=== PATIENT | female | born 1975 | race Asian ===

== ENCOUNTER 2024-03-14 20:45 | Inpatient (IN) | payer OTHER, SELFPAY ==
--- NOTE | ~2024-03-14 | CT_ITS ---
EXAMINATION: CT ABDOMEN AND PELVIS WITHOUT CONTRAST CLINICAL INFORMATION: Abdominal pain, bloating, diarrhea. COMPARISON: None available. TECHNIQUE: Multidetector volumetric imaging was performed from the superior aspect of the liver through the pubic symphysis. Sagittal and coronal reformatted images were obtained on the technologist's workstation. This CT examination was performed using dose optimization techniques as appropriate, variously including the following: *Automated exposure control *Adjustment of mA and/or kV according to patient size (this includes techniques or standardized protocols for targeted exams where dose is matched to indication/reason for exam; i.e. extremities or head) *Use of iterative reconstruction technique DLP: 227 mGy-cm FINDINGS: LUNG BASES: The visualized lung bases are unremarkable. LIVER, GALLBLADDER, AND BILIARY TREE: The liver is normal in size, shape, and attenuation. No focal hepatic lesion or biliary ductal dilatation is present. The gallbladder is nondistended and unremarkable. No radiopaque gallstone. No intra or extrahepatic biliary ductal dilatation. PANCREAS: Unremarkable. SPLEEN: Atrophic. ADRENAL GLANDS: Unremarkable. KIDNEYS AND URETERS: The kidneys are normal in size, shape, and attenuation. No hydronephrosis, hydroureter, or calculi seen. No perinephric stranding. BLADDER: Nondistended and unremarkable. GASTROINTESTINAL TRACT: There is swirling of the mesentery within the central pelvis with associated sigmoid colon bowel loops. There is prominent stool and just proximal to this area with severe dilatation of the proximal colon. The distal sigmoid and rectum demonstrates circumferential wall thickening with adjacent stranding and edema. Findings are concerning for sigmoid volvulus an associated bowel obstruction. The distal sigmoid and rectal wall thickening and edema is concerning for ischemia. No pneumatosis. Small amount of pelvic free fluid. No extraluminal air or evidence of perforation. PERITONEAL CAVITY: Pelvic free fluid. No organized fluid collection or abscess formation. No free air. ABDOMINAL WALL: No significant hernia is appreciated. LYMPH NODES: No significant lymphadenopathy, however, evaluation limited without IV contrast. VASCULAR: Unremarkable. PELVIC VISCERA: Grossly unremarkable uterus. Small amount of pelvic free fluid. OSSEOUS STRUCTURES: Unremarkable. CT/CT abdomen pelvis wo IV con IMPRESSION: 1. Swirling of the mesentery within the central pelvis with associated sigmoid colon bowel loops. Findings are concerning for sigmoid volvulus and associated bowel obstruction. The distal sigmoid and rectal wall thickening and edema is concerning for ischemia. No pneumatosis. No extraluminal air or evidence of perforation. 2. Small amount of pelvic free fluid. No organized fluid collection or abscess formation. This critical result was discussed with SÁNCHEZ Bernal at 10:40 PM on 03/13/2024 and it was ascertained that the content and urgency of the report was understood at the time of direct communication. Fleischner guidelines were followed.
[2024-03-14 21:18] VITALS: BP 115/54; PULSE 58; RESP 16; TEMP 36.4; O2SAT 99; BMI 16.0
[2024-03-14 21:35] LABS: MANUAL DIFF FLAG NO
[2024-03-14 21:37] LABS: Basophils Percent Auto 0.2 % (0-2); Eosinophils Absolute Auto 0.1 X10*3/uL (0.0-0.4); Eosinophils Percent Auto 0.9 % (0-4); Hematocrit 40.3 % (37.0-47.0); Hemoglobin 13.4 g/dl (12.0-16.0); Imm Gran Abs Auto 0.02 X10*3/uL (0.00-0.03); Imm Gran Pct Auto 0.3 % (0.0-0.4); Lymphocytes Absolute Auto 1.6 X10*3/uL (1.2-4.9); Lymphocytes Percent Auto 24.6 % (20-40); Mean Corpuscular HGB Conc 33.3 g/dl (31.0-35.0); Mean Corpuscular Volume 93.3 fL (80.0-98.0); Mean Platelet Volume 8.8 fL (9.4-12.3); Monocytes Absolute Auto 0.6 X10*3/uL (0.1-1.2); Monocytes Percent Auto 8.3 % (2-11); Neutrophils Absolute Auto 4.4 x10*3/uL (2.0-8.3); Neutrophils Percent Auto 65.7 % (45-73); Platelet Count 244 X10*3/uL (160-400); Red Blood Count 4.32 X10*6/uL (4.20-5.50); Red Cell Distribution Width 13.9 % (11.0-16.0); White Blood Count 6.6 X10*3/uL (4.8-10.8)
[2024-03-14 21:46] LABS: Appearance Urine Clear; Color Urine Dark Yellow; Glucose Urine UA Negative (Negative); Leukocyte Esterase Urine Negative (Negative); Nitrite Urine Negative (Negative); PH 5.5 (5.0-9.0); Specific Gravity - Urine 1.025 (1.005-1.025); Urine Blood Negative (Negative); Urine Ketones 15 mg/dL (Negative); Urine Protein Negative (Neg-Trace)
--- NOTE | 2024-03-14 21:47 | ED.ABDPAIN ---
HPI - Abdominal Pain General Chief Complaint: Abdominal Pain Stated Complaint: Pain in abdomen Time Seen by Provider: 03/14/24 21:46 Source: patient, RN notes reviewed and old records reviewed Mode of arrival: ambulatory Limitations: no limitations History of Present Illness ED Provider: ALYSSA BERNAL PA-C HPI narrative: 48 year old female with no significant past medical history presents to the ED today for evaluation of lower abdominal pain x24 hours. Reports pain has been constant however waxes and wanes in intensity. Admits to one episode of diarrhea/ mucousy stool this morning. Admits to associated nausea without vomiting. No [id number] pain medication at home prior to arrival in ED. Denies fever/chills, flank pain, constipation, dysuria, hematuria. Related Data Allergies Allergy/AdvReac Type Severity Reaction Status Date / Time No Known Allergies Allergy Verified 03/14/24 21:18 Review of Systems Review of Systems Constitutional: No fever, chills, fatigue, night sweats, weight changes ENT/Mouth: No ear pain, hearing loss, nasal congestion, sinus pain, rhinorrhea, sore throat Eyes: No eye pain, swelling, redness, vision changes, discharge Cardio: No chest pain, palpitations, CÁRDENAS, orthopnea, peripheral edema Pulm: No SOB, cough, sputum, wheezing, dyspnea, hemoptysis GI: No nausea, vomiting, hematemesis, abdominal pain, diarrhea, constipation, hematochezia, melena, +abdominal pain, +loose stool : No irregular bleeding, dysuria, frequency, urgency, hesitancy, hematuria, flank pain, urinary flow changes, urinary incontinence or retention MSK: No back pain, neck pain, joint pain, myalgias Skin: No lesions, rashes Neuro: No weakness, numbness, paresthesias, LOC, dizziness, headache Psych: No anxiety/panic, depression, SI/HI, AH/VH All other systems reviewed and are negative. [facility] Past Medical History Attestation statement: The following information was validated with the patient. Source: old records reviewed and nursing notes reviewed Social History Social History Smoked in Last 30 Days: No Use of substances other than those prescribed or required for medical reasons: No Advance Directives: No Advance Directives Information Provided: No Patient : No Physical Exam ED Vital Signs: Vital Signs - 24 hr 03/14/24 21:18 Temperature 97.6 F Pulse Rate 58 Respiratory Rate 16 Blood Pressure 115/54 L Pulse Oximetry 99 Oxygen Delivery Method Room Air BMI result Body Mass Index 16.0 vital signs stable Const Other: uncomfortable appearing General: cooperative Orientation/consciousness: patient oriented x3 Limitations: no limitations HENMT Head: Yes normal to inspection, Yes No palpable skull fracture present, Yes normocephalic and Yes atraumatic Eyes General: appearance normal, both eyes and all related structures Pupils: Equal, round and reactive pupils present Neck Neck: Yes normal visual inspection Resp Effort & Inspection: normal respiratory effort and able to speak in complete sentences Auscultation: clear to auscultation bilaterally Cardio Rate: regular rate Rhythm: regular rhythm GI Other: abdomen soft, distended, ttp of lower abdomen without rebound or guarding Neuro General: patient oriented x3 Cranial nerves: Yes Equal, round and reactive pupils present Course Course Course Narrative: 1051-- CBC without leukocytosis or left shift. No anemia. H&H stable. Chemistry without acute electrolyte abnormality requiring intervention. Normal renal function. Total bili slightly elevated to 1.3. Liver function WNL. Lipase WNL. UA without infection or blood. Urine negative. > regarding CT abdomen/pelvis, I received a call from radiologist noting concern for sigmoid volvulus with distended colon and ischemia of the distal colon. my attending physician dr. cory marie who also evaluated patient at bedside and spoke with dr. uriostegui who will be taking patient to OR stat for exploratory laparotomy > IVF, toradol, ekg, lactic, coags ordered > Zosyn ordered preoperatively. No concern for infection or sepsis. Medical Decision Making Medical Decision Making [facility] Narrative: 48 year old female with no significant past medical history presents to the ED today for evaluation of lower abdominal pain x24 hours. Vital signs stable. Afebrile. She is nontoxic appearing in no acute distress. Patient visibly uncomfortable on exam bed. Abdomen is distended but soft. TTP of lower abdomen without rebound or guarding. No CVAT b/l. Differential diagnosis includes gastroenteritis, gastritis, diverticulosis, diverticulitis, SBO, acute abdomen Plan for labs, UA, CT, and re-evaluation. Differential Diagnosis Differential Diagnoses: The differential diagnosis associated with the presentation includes as above. Admission/Observation Consideration of admission/observation: Escalation of care including admission/observation considered Patient will be admitted to surgery for exploratory laparotomy Consult Healthcare Provider Management of the patient was discussed with: Farrowing Manager (Dr. Wray (general surgery)) Lab Data MDM Lab Attestation statement: I reviewed the patient's lab results. as above. 03/14/24 21:30 03/14/24 21:30 Labs: Lab Results 03/14/24 03/14/24 Range/Units 21:30 22:49 WBC 6.6 (4.8-10.8) X10*3/uL RBC 4.32 (4.20-5.50) X10*6/uL Hgb 13.4 (12.0-16.0) g/dl Hct 40.3 (37.0-47.0) % MCV 93.3 (80.0-98.0) fL MCH 31.0 (27.0-33.0) pg MCHC 33.3 (31.0-35.0) g/dl RDW 13.9 (11.0-16.0) % Plt Count 244 (160-400) X10*3/uL MPV 8.8 L (9.4-12.3) fL Immature Gran % (Auto) 0.3 (0.0-0.4) % Neut % (Auto) 65.7 (45-73) % Lymph % (Auto) 24.6 (20-40) % [place] % (Auto) 8.3 (2-11) % Eos % (Auto) 0.9 (0-4) % Baso % (Auto) 0.2 (0-2) % Lymph # (Auto) 1.6 (1.2-4.9) X10*3/uL [place] # (Auto) 0.6 (0.1-1.2) X10*3/uL Eos # (Auto) 0.1 (0.0-0.4) X10*3/uL Baso # (Auto) 0.0 (0.0-0.2) X10*3/uL Abs Immat Gran (auto) 0.02 (0.00-0.03) X10*3/uL Absolute Neuts (auto) 4.4 (2.0-8.3) x10*3/uL Absolute Nucleated RBC 0.000 (0.0-0.012) X10*3/uL Nucleated RBC % (auto) 0.0 (0.0-0.2) /100WBC PT 11.0 L (11.1-13.3) SEC INR 0.9 (0.9-1.1) Sodium 140 (135-145) mmol/L Potassium 3.8 (3.3-5.1) mmol/L Chloride 103 (96-108) mmol/L Carbon Dioxide 28 (22-29) mmol/L Anion Gap 13 (12-20) BUN 11 (9-16) mg/dL Creatinine 0.73 (0.5-1.4) mg/dL Estim Creat Clear Calc 59.0 Estimated GFR > 60 Random Glucose 87 (60-115) mg/dL Lactic Acid 0.8 (0.5-2.0) mmol/L Calcium 9.2 (8.4-10.2) mg/dL Total Bilirubin 1.3 H (0.0-1.0) mg/dL AST 28 (5-31) U/L ALT 17 (0-31) U/L Alkaline Phosphatase 57 (39-117) U/L Total Protein 7.3 (6.5-8.0) g/dL Albumin 4.3 (3.5-5.0) g/dL Lipase 39 (8-78) U/L Urine Color Dark Yellow Urine Appearance Clear Urine pH 5.5 (5.0-9.0) Ur Specific [place] 1.025 (1.005-1.025) Urine Protein Negative (Neg-Trace) mg/dL Urine Glucose (UA) Negative (Negative) mg/dL Urine Ketones 15 (Negative) mg/dL Urine Blood Negative (Negative) Urine Nitrite Negative (Negative) Ur Leukocyte Esterase Negative (Negative) Urine Test NEGATIVE (NEGATIVE) Independent Interpretation I performed an independent interpretation of an: EKG and CT Scan Interpretation: EKG showing sinus bradycardia with sinus arrhythmia, rate of 47 beats per minute, QT 454, QTC 401, no acute ischemic changes or ST elevations. CT abdomen/pelvis showing distended colon, agree with radiologist's interpretation. Radiology Impression Discussion of test interpretation with radiology: I have reviewed the radiologist's reading. Radiologist Impression: EXAMINATION: CT ABDOMEN AND PELVIS WITHOUT CONTRAST CLINICAL INFORMATION: Abdominal pain, bloating, diarrhea. COMPARISON: None available. TECHNIQUE: Multidetector volumetric imaging was performed from the superior aspect of the liver through the pubic symphysis. Sagittal and coronal reformatted images were obtained on the technologist's workstation. This CT examination was performed using dose optimization techniques as appropriate, variously including the following: *Automated exposure control *Adjustment of mA and/or kV according to patient size (this includes techniques or standardized protocols for targeted exams where dose is matched to indication/reason for exam; i.e. extremities or head) *Use of iterative reconstruction technique DLP: 227 mGy-cm FINDINGS: LUNG BASES: The visualized lung bases are unremarkable. LIVER, GALLBLADDER, AND BILIARY TREE: The liver is normal in size, shape, and attenuation. No focal hepatic lesion or biliary ductal dilatation is present. The gallbladder is nondistended and unremarkable. No radiopaque gallstone. No intra or extrahepatic biliary ductal dilatation. PANCREAS: Unremarkable. SPLEEN: Atrophic. ADRENAL GLANDS: Unremarkable. KIDNEYS AND URETERS: The kidneys are normal in size, shape, and attenuation. No hydronephrosis, hydroureter, or calculi seen. No perinephric stranding. BLADDER: Nondistended and unremarkable. GASTROINTESTINAL TRACT: There is swirling of the mesentery within the central pelvis with associated sigmoid colon bowel loops. There is prominent stool and just proximal to this area with severe dilatation of the proximal colon. The distal sigmoid and rectum demonstrates circumferential wall thickening with adjacent stranding and edema. Findings are concerning for sigmoid volvulus an associated bowel obstruction. The distal sigmoid and rectal wall thickening and edema is concerning for ischemia. No pneumatosis. Small amount of pelvic free fluid. No extraluminal air or evidence of perforation. PERITONEAL CAVITY: Pelvic free fluid. No organized fluid collection or abscess formation. No free air. ABDOMINAL WALL: No significant hernia is appreciated. LYMPH NODES: No significant lymphadenopathy, however, evaluation limited without IV contrast. VASCULAR: Unremarkable. PELVIC VISCERA: Grossly unremarkable uterus. Small amount of pelvic free fluid. OSSEOUS STRUCTURES: Unremarkable. CT/CT abdomen pelvis wo IV con IMPRESSION: 1. Swirling of the mesentery within the central pelvis with associated sigmoid colon bowel loops. Findings are concerning for sigmoid volvulus and associated bowel obstruction. The distal sigmoid and rectal wall thickening and edema is concerning for ischemia. No pneumatosis. No extraluminal air or evidence of perforation. 2. Small amount of pelvic free fluid. No organized fluid collection or abscess formation. This critical result was discussed with SÁNCHEZ Bernal at 10:40 PM on 03/13/2024 and it was ascertained that the content and urgency of the report was understood at the time of direct communication. Fleischner guidelines were followed. Medications Administered Generic Name Dose Route Start Last Admin Trade Name Freq PRN Reason Stop Dose Admin Sodium Chloride 1,000 mls @ 999 mls/hr 03/14/24 22:45 03/14/24 23:01 Ns IV 03/14/24 23:45 999 mls/hr .Q1H1M CARLOS Administration Sodium Chloride 1,000 mls @ 100 mls/hr 03/14/24 22:45 03/14/24 23:01 Ns IVCONT 100 mls/hr .Q10H CARLOS Administration Piperacillin Sod/Tazobactam 50 mls @ 100 mls/hr 03/14/24 22:50 03/14/24 23:01 Sod 3.375 gm/ Sodium Chloride IV 03/14/24 23:19 100 mls/hr ONCE ONE Administration Discontinued Medications Generic Name Dose Route Start Last Admin Trade Name Freq PRN Reason Stop Dose Admin Ketorolac Tromethamine 30 mg 03/14/24 22:08 03/14/24 22:16 Ketorolac Tromethamine 30 Mg/Ml Vial IM 03/14/24 22:09 30 mg ONCE ONE Administration Critical Care Time Critical Care Time Critical Care Time: Yes Total Critical Care Time: 45 Attestation: Critical care time in the amount of 45 minutes has been provided to the patient in terms of direct patient care, frequent reevaluation, consultation with general surgery, review and interpretation of medical data and results, and management of potentially life-threatening conditions. This is all outside of any medical procedures. Discharge Plan Discharge Clinical Impression: Sigmoid volvulus, Large bowel ischemia Patient Disposition: Admitted As Inpatient
[2024-03-14 21:51] LABS: Alanine Aminotransferase 17 U/L (0-31); Albumin Level 4.3 g/dL (3.5-5.0); Alkaline Phosphatase 57 U/L (39-117); Anion Gap 13 (12-20); Aspartate Amino Transferase 28 U/L (5-31); Bilirubin Total 1.3 mg/dL (0.0-1.0); Blood Urea Nitrogen 11 mg/dL (9-16); Calcium 9.2 mg/dL (8.4-10.2); Carbon Dioxide 28 mmol/L (22-29); Chloride 103 mmol/L (96-108); Estimated Glomerular Filt Rate > 60; Glucose Random 87 mg/dL (60-115); Lipase 39 U/L (8-78); Potassium 3.8 mmol/L (3.3-5.1); Sodium 140 mmol/L (135-145); Total Protein 7.3 g/dL (6.5-8.0)
[2024-03-14] MEDS: Ketorolac Tromethamine 30 MG/ML VIAL IM (22:16)
[2024-03-14 22:18] LABS: UPreg QC Valid YES; Urine Pregnancy NEGATIVE (NEGATIVE)
--- NOTE | 2024-03-14 22:41 | ECG_ITS ---
Test Reason : ABD PAIN Blood Pressure : / mmHG Vent. Rate : 047 BPM Atrial Rate : 047 BPM P-R Int : 126 ms QRS Dur : 076 ms QT Int : 454 ms P-R-T Axes : 051 041 034 degrees QTc Int : 401 ms Sinus bradycardia with sinus arrhythmia Low voltage QRS Borderline ECG No previous ECGs available Referred By: Moira Meyer Electronically Signed By:SAL CAMACHO MD
[2024-03-14] MEDS: 0.9 % Sodium Chloride 1,000 ML 100 ML IVCONT (23:01)
[2024-03-14] MEDS: 0.9 % Sodium Chloride 1,000 ML 999 ML IV (23:01)
[2024-03-14] MEDS: Piperacillin Sodium/Tazobactam 3.375 GM in 0.9 % Sodium Chloride 50 ML IV (23:01)
[2024-03-14 23:03] LABS: INTERNATIONAL NORM RATIO 0.9 (0.9-1.1)
[2024-03-14 23:12] LABS: Lactic Acid 0.8 mmol/L (0.5-2.0)
--- NOTE | 2024-03-14 23:15 | P.HPGS_ITS ---
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 Pain is constant with episodes of increased pain. Denies nausea or vomiting and reports a mucousy bowel movement earlier today. She denies a previous episode of similar pain. She denies a previous history of abdominal surgery. In the emergency department she was noted to have a distended abdomen with tympany to percussion. CT abdomen and pelvis is suggestive of a sigmoid volvulus with areas of ischemia. She is admitted to the surgical service for further management of this volvulus. Review of Systems Review of Systems: Yes all other systems are reviewed and are negative [facility] Social History Social History Smoked in Last 30 Days: No Use of substances other than those prescribed or required for medical reasons: No Advance Directives: No Advance Directives Information Provided: No Patient : No Meds Allergies Allergy/AdvReac Type Severity Reaction Status Date / Time No Known Allergies Allergy Verified 03/14/24 21:18 Active Medications: Current Medications Sodium Chloride (Ns) 1,000 mls @ 999 mls/hr IV .Q1H1M [facility] Stop: 03/14/24 23:45 Last Admin: 03/14/24 23:01 Dose: 999 mls/hr Sodium Chloride (Ns) 1,000 mls @ 100 mls/hr IVCONT .Q10H [facility] Last Admin: 03/14/24 23:01 Dose: 100 mls/hr Piperacillin Sod/Tazobactam (Sod 3.375 gm/ Sodium Chloride) 50 mls @ 100 mls/hr IV ONCE ONE Stop: 03/14/24 23:19 Last Admin: 03/14/24 23:01 Dose: 100 mls/hr Physical Exam Vital Signs: Vital Signs: Last Vital Signs Temp 97.6 F 03/14/24 21:18 Pulse 58 03/14/24 21:18 Resp 16 03/14/24 21:18 BP 115/54 L 03/14/24 21:18 Pulse Ox 99 03/14/24 21:18 O2 Del Method Room Air 03/14/24 21:18 BMI result Body Mass Index 16.0 Const: General: cooperative and no acute distress Nutritional Appearance: well nourished Orientation/consciousness: patient oriented x3 Limitations: no limitations HEENT: Head: Yes normocephalic and Yes atraumatic Ears: hearing grossly normal bilaterally Resp: Effort & Inspection: normal respiratory effort, no audible wheezes, no cough and no respiratory distress Cardio: Jugular venous distension: no JVD GI: Other: Distended, tympanitic to percussion, absent bowel sounds, diffusely tender without rebound or guarding. Skin: Other: Warm, dry, no rash Neuro: General: patient oriented x3 Extrem: General: Yes no clubbing, cyanosis or edema Results Results Labs: Short CBC 03/14/24 Range/Units 21:30 WBC 6.6 (4.8-10.8) X10*3/uL Hgb 13.4 (12.0-16.0) g/dl Hct 40.3 (37.0-47.0) % Plt Count 244 (160-400) X10*3/uL BMP 03/14/24 21:30 Sodium 140 Potassium 3.8 Chloride 103 Carbon Dioxide 28 BUN 11 Creatinine 0.73 Calcium 9.2 Liver Function 03/14/24 Range/Units 21:30 Total Bilirubin 1.3 H (0.0-1.0) mg/dL AST 28 (5-31) U/L ALT 17 (0-31) U/L Alkaline Phosphatase 57 (39-117) U/L Albumin 4.3 (3.5-5.0) g/dL Urine 03/14/24 Range/Units 21:30 Urine Color Dark Yellow Urine Appearance Clear Urine pH 5.5 (5.0-9.0) Ur Specific [place] 1.025 (1.005-1.025) Urine Protein Negative (Neg-Trace) mg/dL Urine Glucose (UA) Negative (Negative) mg/dL Urine Test NEGATIVE (NEGATIVE) Abdomen CT scan report/results: image reviewed Additional studies: CT/CT abdomen pelvis wo IV con IMPRESSION: 1. Swirling of the mesentery within the central pelvis with associated sigmoid colon bowel loops. Findings are concerning for sigmoid volvulus and associated bowel obstruction. The distal sigmoid and rectal wall thickening and edema is concerning for ischemia. No pneumatosis. No extraluminal air or evidence of perforation. 2. Small amount of pelvic free fluid. No organized fluid collection or abscess formation. Assessment and Plan (1) Large bowel ischemia: Status: Acute (2) Sigmoid volvulus: Status: Acute Plan 48-year-old female with no prior medical history and no previous surgery presenting with 24 hours of abdominal pain and distention found on workup to have a possible sigmoid volvulus. I recommended exploratory laparotomy with possible bowel resection, possible ostomy. After discussion of the procedure, risks, and alternatives, she consents to the surgery. Quality Stroke Does the patient have a stroke diagnosis?: No VTE Prior VTE?: No VTE Risk Level:: Surgical - low VTE Device Contraindication: N/A - Device Ordered VTE Drug Contraindication: Treatment Not Indicated Procedures Date of Service Date of Service: 03/14/24
[2024-03-14 23:23] VITALS: BP 119/65; PULSE 83; RESP 24; TEMP 36.8; O2SAT 90
[2024-03-14] MEDS: HYDROmorphone HCl 0.5 MG/0.5 ML SYRINGE IVPUSH (23:31)
[2024-03-15] VITALS (11 sets, daily range): BP systolic 82–111; BP diastolic 43–64; PULSE 43–72; RESP 9–20; TEMP 36.2–37.6; O2SAT 98–100; BMI 18.5
[2024-03-15] MEDS: cefoTEtan disodium 2 GM in 0.9 % Sodium Chloride 50 ML IV (00:01)
--- NOTE | 2024-03-15 01:12 | P.OP_ITS ---
Operative Note Operative Note Date of Service: 03/15/24 Narrative: Preoperative diagnosis: Sigmoid volvulus Postoperative diagnosis: Sigmoid volvulus Procedure: Sigmoid resection, Santiago procedure Surgeon: Trevon Wray MD [employer]: None Anesthesia: General endotracheal Indications for procedure: 48-year-old female patient presenting with 24 hour history of abdominal pain and distention found on workup to have a sigmoid volvulus. Operative findings: Markedly distended sigmoid colon with ischemic changes. Colon was twisted x2 along a markedly distended/redundant mesentery. Specimen: Sigmoid colon Estimated blood loss: 10 mL Complications: None Procedure details: Patient was brought to the OR placed in a supine position. After administering general anesthesia the patient's abdomen was prepped with ChloraPrep and draped in a sterile fashion. A De La Cruz catheter was also inserted. A surgical time-out was called the consent confirmed. Patient received preoperative antibiotics and Venodyne boots were in place. Local anesthesia was infiltrated in the midline below the umbilicus. A lower midline incision was then created with a scalpel and carried out through subcutaneous tissue past Soraya's fascia, through the linea alba and peritoneum and into the abdominal cavity. A markedly distended and twisted sigmoid colon was immediately identified. The apex was located high in the right upper quadrant. This was gently brought through the incision and the multiple twists released. Areas of ischemia were identified at the site of twisting. A decision was made to proceed with sigmoid colectomy with end-colostomy (Santiago procedure). Area of the distal descending colon and proximal sigmoid colon was identified. Mesentery was divided below the bowel wall. A MARIELOS stapler was then obtained and used to staple and divide the proximal sigmoid colon. LigaSure was then used to divide the mesentery to the distal sigmoid colon. Once again a MARIELOS stapler was used to staple and divide the bowel. The remaining mesentery was then divided using LigaSure. The specimen was passed off the table and sent to pathology for further examination. Abdomen was then irrigated with saline solution and suctioned dry. A circular incision was then made in the left lower quadrant lateral to the umbilicus. This was carried down to the anterior rectus sheath were a cruciate incision was then made. The rectus muscle was then split with a Pratima clamp and then the posterior sheath and peritoneum entered. The proximal bowel was brought up through the circular incision to be used as a end colostomy. At this point peritoneum was closed in the midline incision using a running 0 Polysorb suture. Fascia was closed using a looped 0 PDS suture. Skin was then closed with skin tessie. The colostomy was then matured by opening the staple line with el ectrocautery. Mucosa was then approximated to the skin using 3-0 Polysorb sutures in a [place] fashion in 4 quadrants. Additional 3-0 Polysorb sutures were then used to approximate the skin to the mucosa circumferentially. Sterile dressings consisting of 4 x 4 gauze and Tegaderm were then applied to the midline incision. Ostomy bag was then applied to the ostomy. The patient tolerated the procedure well. Sponge, instrument, and needle counts reported as correct. The patient was transferred to PACU in stable condition.
[2024-03-15] MEDS: Acetaminophen 1,000 MG/100 ML PIGGYBACK 400 MG IV ×3 (01:34→13:23)
[2024-03-15] MEDS: Dextrose 5 % and Lactated Ring 1,000 ML 125 ML IVCONT ×3 (03:40→20:02)
[2024-03-15 06:11] LABS: MANUAL DIFF FLAG NO
[2024-03-15 06:29] LABS: Basophils Percent Auto 0.4 % (0-2); Eosinophils Percent Auto 0.1 % (0-4); Hematocrit 36.9 % (37.0-47.0); Hemoglobin 12.1 g/dl (12.0-16.0); Imm Gran Abs Auto 0.04 X10*3/uL (0.00-0.03); Imm Gran Pct Auto 0.4 % (0.0-0.4); Lymphocytes Absolute Auto 0.8 X10*3/uL (1.2-4.9); Lymphocytes Percent Auto 8.1 % (20-40); Mean Corpuscular HGB Conc 32.8 g/dl (31.0-35.0); Mean Corpuscular Hemoglobin 31.1 pg (27.0-33.0); Mean Corpuscular Volume 94.9 fL (80.0-98.0); Mean Platelet Volume 9.6 fL (9.4-12.3); Monocytes Absolute Auto 0.7 X10*3/uL (0.1-1.2); Monocytes Percent Auto 7.1 % (2-11); Neutrophils Absolute Auto 8.4 x10*3/uL (2.0-8.3); Neutrophils Percent Auto 83.9 % (45-73); Platelet Count 216 X10*3/uL (160-400); Red Blood Count 3.89 X10*6/uL (4.20-5.50)
[2024-03-15 06:35] LABS: Anion Gap 11 (12-20); Blood Urea Nitrogen 11 mg/dL (9-16); Calcium 7.9 mg/dL (8.4-10.2); Carbon Dioxide 23 mmol/L (22-29); Chloride 108 mmol/L (96-108); Creatinine Clr Calc Pharmacy 71.3; Estimated Glomerular Filt Rate > 60; Glucose Random 125 mg/dL (60-115); Potassium 3.9 mmol/L (3.3-5.1); Sodium 138 mmol/L (135-145)
--- NOTE | 2024-03-15 08:18 | P.PNGS_ITS ---
Subjective Subjective Date of Service: 03/15/24 Interval history: Patient is much more comfortable this morning, denies nausea or vomiting. Like to try clear liquids and get out of bed. I reviewed the operative findings and the procedure performed. Patient expressed understanding. Physical Exam 2 Vital Signs: Vital Signs: Last Vital Signs Temp 97.6 F 03/15/24 07:52 Pulse 60 03/15/24 07:52 Resp 18 03/15/24 07:52 BP 94/50 L 03/15/24 07:52 Pulse Ox 98 03/15/24 07:52 O2 Del Method Room Air 03/15/24 07:52 O2 Flow Rate 2 03/15/24 02:04 BMI result Body Mass Index 18.5 Const: General: no acute distress Nutritional Appearance: well nourished Orientation/consciousness: patient oriented x3 Limitations: no limitations Resp: Effort & Inspection: normal respiratory effort, no audible wheezes, no cough and no respiratory distress GI: Other: Ostomy is pink and minimally edematous. Midline incision is clean and intact with a small amount of bloody discharge under the Tegaderm. Skin: Other: Warm, dry, no rash Neuro: General: patient oriented x3 Extrem: Other: No edema Objective Data Active Medications Sodium Chloride (Ns) 1,000 mls @ 100 mls/hr IVCONT .Q10H [facility] Last Infusion: 03/15/24 07:39 Dose: Infused Documented By: SARAH Dextrose/Lactated Ringer's ([id number]) 1,000 mls @ 125 mls/hr IVCONT .Q8H [facility] Last Admin: 03/15/24 03:40 Dose: 125 mls/hr Documented By: AMOL Comments: new admit from pacu Acetaminophen (Ofirmev) 1,000 mg in 100 mls @ 400 mls/hr IV Q6H [facility] Last Infusion: 03/15/24 02:29 Dose: Infused Documented By: AMOL Melatonin (Melatonin 3 Mg Tablet) 6 mg PO BEDTIME PRN PRN Reason: Insomnia Morphine Sulfate (Morphine Sulfate 4 Mg/Ml Cartridge) 3 mg IVPUSH Q3H PRN; Protocol PRN Reason: Pain, Severe (Pain Scale 7-10) Ondansetron HCl (Ondansetron Hcl 4 Mg/2 Ml Vial) 4 mg IVPUSH QID PRN PRN Reason: Nausea Oxycodone HCl (Oxycodone Hcl Immed Release 5 Mg Tablet) 5 mg PO Q6H PRN PRN Reason: Pain, Moderate(Pain Scale 4-6) Sodium Chloride (0.9 % Sodium Chloride Flush 3 Ml Syringe) 3 ml IVFLUSH QSHIFT [facility] Labs 03/15/24 05:39 03/15/24 05:39 Labs: Laboratory Results - last 24 hr 03/14/24 03/14/24 03/15/24 21:30 22:49 05:39 MCV 93.3 94.9 MCH 31.0 31.1 MCHC 33.3 32.8 RDW 13.9 14.0 Plt Count 244 216 MPV 8.8 L 9.6 Immature Gran % (Auto) 0.3 0.4 Neut % (Auto) 65.7 83.9 H Lymph % (Auto) 24.6 8.1 L [place] % (Auto) 8.3 7.1 Eos % (Auto) 0.9 0.1 Baso % (Auto) 0.2 0.4 Lymph # (Auto) 1.6 0.8 L [place] # (Auto) 0.6 0.7 Eos # (Auto) 0.1 0.0 Baso # (Auto) 0.0 0.0 Abs Immat Gran (auto) 0.02 0.04 H Absolute Neuts (auto) 4.4 8.4 H Absolute Nucleated RBC 0.000 0.000 Nucleated RBC % (auto) 0.0 0.0 PT 11.0 L INR 0.9 Anion Gap 13 11 L Estim Creat Clear Calc 59.0 71.3 Estimated GFR > 60 > 60 Random Glucose 87 125 H Lactic Acid 0.8 Calcium 9.2 7.9 L D Total Bilirubin 1.3 H AST 28 ALT 17 Alkaline Phosphatase 57 Total Protein 7.3 Albumin 4.3 Lipase 39 Urine Color Dark Yellow Urine Appearance Clear Urine pH 5.5 Ur Specific [place] 1.025 Urine Protein Negative Urine Glucose (UA) Negative Urine Ketones 15 Urine Blood Negative Urine Nitrite Negative Ur Leukocyte Esterase Negative Urine Test NEGATIVE Blood Type O Positive Antibody Screen NEGATIVE Procedures Date of Service Date of Service: 03/15/24 Progress Note: A&P Assessment and plan (1) Large bowel ischemia: Status: Acute (2) Sigmoid volvulus: Status: Acute Plan Pod 0 following exploratory laparotomy, sigmoid colectomy, end colostomy for sigmoid volvulus. Overall the patient is much improved this morning with improved abdominal pain. She denies nausea or vomiting. No ostomy output noted. Plan out of bed and ambulation, start clear liquids. Continue IV hydration for dehydration. Await return of bowel function. Time Spent With Patient Time: Total time managing care of this patient today ____ minutes. Quality Stroke Does the patient have a stroke diagnosis?: No VTE Prior VTE?: No VTE Risk Level:: Surgical - low VTE Device Contraindication: N/A - Device Ordered VTE Drug Contraindication: Treatment Not Indicated
[2024-03-15] MEDS: 0.9 % Sodium Chloride Flush 3 ML SYRINGE IVFLUSH (08:29)
--- NOTE | 2024-03-15 11:58 | HO.POSTANES ---
Post Anesthesia Evaluation Post Anesthesia Evaluation Date of Service: 03/15/24 Vital Signs: Vital Signs Temp Pulse Resp BP Pulse Ox O2 Del Method O2 Flow Rate 03/15/24 07:52 97.6 F 60 18 94/50 L 98 Room Air 03/15/24 02:04 97.2 F 48 L 20 109/59 L 100 Nasal Cannula 2 03/15/24 01:50 97.7 F 44 L 12 111/62 98 Nasal Cannula 2 03/15/24 01:35 43 L 10 L 106/61 100 Nasal Cannula 2 03/15/24 01:30 44 L 11 L 103/62 100 Nasal Cannula 2 03/15/24 01:25 98 F 46 L 9 L 106/63 100 Nasal Cannula 3 03/15/24 01:20 98 F 45 L 16 105/64 100 Nasal Cannula 4 Anesthesia: General Endotracheal-GETA Mental Status: Awake Pain Control: Satisfactory Nausea/Vomiting: None Hydration: Adequate Anesthesia-Related Issues: No Anes. Related Issues
--- NOTE | 2024-03-15 12:29 | PHA.MEDREC ---
Pharmacy Consult ? Medication Reconciliation Pharmacy has completed the medication reconciliation. Spoke with patient to confirm.
--- NOTE | 2024-03-15 13:45 | PC.NURSE ---
1330- indwelling urinary catheter removed. Output of 850mL of clear yellow urine in drainage bag. Device intact. Patient tolerated well. Due to void by 1929. Patient aware.
--- NOTE | 2024-03-15 14:41 | MHC.CM.PN ---
PT REPORTS SHE LIVES ALONE AND IS INDEPENDENT WITH CARE SHE HAS NO SERVICES AND NO DME AND WORKS A PCP AT [facility] PT SAYS SHE HAS A HCP ON FILE WITH HER PCP, ELLIOT WILSON DCP: HOME NO SERVICES VIA PRIVATE TRANSPORT
--- NOTE | 2024-03-15 16:51 | PC.NURSE ---
Approximately 1430- 150mL of clear yellow urine found in hat measuring device in patient's bathroom. Unknown when patient voided, unable to obtain PVR. Denied discomfort or difficulty urinating. Reinforced need to notify staff after voiding as as follow up from indwelling urinary catheter removal. Patient verbalized understanding.
[2024-03-16] MEDS: Acetaminophen 1,000 MG/100 ML PIGGYBACK 400 MG IV ×4 (02:16→19:50)
[2024-03-16] MEDS: Dextrose 5 % and Lactated Ring 1,000 ML 125 ML IVCONT (02:18)
[2024-03-16 03:47] VITALS: BP 93/53; PULSE 55; RESP 16; TEMP 37.3; O2SAT 97
[2024-03-16 07:00] VITALS: BP 96/47; PULSE 55; RESP 18; TEMP 36.5; O2SAT 98
[2024-03-16] MEDS: 0.9 % Sodium Chloride Flush 3 ML SYRINGE IVFLUSH ×2 (08:25→19:54)
--- NOTE | 2024-03-16 09:58 | P.PNGS_ITS ---
Subjective Subjective Date of Service: 03/16/24 Interval history: Patient feels well and denies abdominal pain. Large amount of stool noted within the ostomy bag. Physical Exam 2 Vital Signs: Vital Signs: Last Vital Signs Temp 97.7 F 03/16/24 07:00 Pulse 55 03/16/24 07:00 Resp 18 03/16/24 07:00 BP 96/47 L 03/16/24 07:00 Pulse Ox 98 03/16/24 07:00 O2 Del Method Room Air 03/16/24 07:00 O2 Flow Rate 2 03/15/24 02:04 BMI result Body Mass Index 18.5 Const: General: no acute distress Nutritional Appearance: well nourished Orientation/consciousness: patient oriented x3 Limitations: no limitations Resp: Effort & Inspection: normal respiratory effort, no audible wheezes, no cough and no respiratory distress GI: Other: Ostomy is functioning well with a large amount of stool within the bag. Midline incision is clean and intact with a small amount of bloody discharge under the Tegaderm. Skin: Other: Warm, dry, no rash Neuro: General: patient oriented x3 Extrem: Other: No edema Objective Data Active Medications Acetaminophen (Ofirmev) 1,000 mg in 100 mls @ 400 mls/hr IV Q6H [facility] Last Infusion: 03/16/24 08:50 Dose: Infused Documented By: AG Melatonin (Melatonin 3 Mg Tablet) 6 mg PO BEDTIME PRN PRN Reason: Insomnia Morphine Sulfate (Morphine Sulfate 4 Mg/Ml Cartridge) 3 mg IVPUSH Q3H PRN; Protocol PRN Reason: Pain, Severe (Pain Scale 7-10) Ondansetron HCl (Ondansetron Hcl 4 Mg/2 Ml Vial) 4 mg IVPUSH QID PRN PRN Reason: Nausea Oxycodone HCl (Oxycodone Hcl Immed Release 5 Mg Tablet) 5 mg PO Q6H PRN PRN Reason: Pain, Moderate(Pain Scale 4-6) Sodium Chloride (0.9 % Sodium Chloride Flush 3 Ml Syringe) [facility] Last Admin: 03/16/24 08:25 Dose: 3 ml Documented By: SARAH Labs 03/15/24 05:39 03/15/24 05:39 Procedures Date of Service Date of Service: 03/16/24 Progress Note: A&P Assessment and plan (1) Large bowel ischemia: Status: Acute (2) Sigmoid volvulus: Status: Acute Plan POD #1 following exploratory laparotomy, sigmoid colectomy, end colostomy for sigmoid volvulus. Patient is much improved this morning after passing stool in the ostomy. We will advance her to a regular diet with possible discharge in a.m. if well tolerated. She will need instruction on ostomy care. Time Spent With Patient Time: Total time managing care of this patient today ____ minutes. Quality Stroke Does the patient have a stroke diagnosis?: No VTE Prior VTE?: No VTE Risk Level:: Surgical - low VTE Device Contraindication: N/A - Device Ordered VTE Drug Contraindication: Treatment Not Indicated
[2024-03-16 16:00] VITALS: BP 101/59; PULSE 54; RESP 16; TEMP 36.7; O2SAT 98
[2024-03-16 20:00] VITALS: BP 104/51; PULSE 64; RESP 16; TEMP 36.9; O2SAT 98
[2024-03-16 20:30] VITALS: RESP 18
[2024-03-17] MEDS: Acetaminophen 1,000 MG/100 ML PIGGYBACK 400 MG IV (01:36)
[2024-03-17 04:00] VITALS: BP 104/55; PULSE 52; RESP 16; TEMP 36.3; O2SAT 100
[2024-03-17 07:51] VITALS: BP 114/57; PULSE 57; RESP 16; TEMP 36.3; O2SAT 100
--- NOTE | 2024-03-17 07:51 | P.PNGS_ITS ---
Subjective Subjective Date of Service: 03/17/24 Interval history: Feels well. Tolerating solid diet without nausea or vomiting. OOB and ambulating without difficulty. Pain is minimal and has only had IV tylenol. Ostomy with stool output. Physical Exam 2 Vital Signs: Vital Signs: Last Vital Signs Temp 97.4 F 03/17/24 04:00 Pulse 52 03/17/24 04:00 Resp 16 03/17/24 04:00 BP 104/55 L 03/17/24 04:00 Pulse Ox 100 03/17/24 04:00 O2 Del Method Room Air 03/17/24 04:00 O2 Flow Rate 2 03/15/24 02:04 BMI result Body Mass Index 18.5 Const: General: comfortable, no acute distress and alert O rientation/consciousness: patient oriented x3 Resp: Effort & Inspection: normal respiratory effort GI: Other: ostomy edematous, soft stool in appliance Inspection: No distended and Yes incision (clean) Palpation (GI): Soft to palpation, nontender and no guarding Percussion: Yes normal to percussion Skin: General skin exam: no rashes or lesions noted Neuro: General: patient oriented x3 and moves all extremities Objective Data Active Medications Acetaminophen (Ofirmev) 1,000 mg in 100 mls @ 400 mls/hr IV Q6H [facility] Last Infusion: 03/17/24 01:51 Dose: Infused Documented By: DENILSON Melatonin (Melatonin 3 Mg Tablet) 6 mg PO BEDTIME PRN PRN Reason: Insomnia Morphine Sulfate (Morphine Sulfate 4 Mg/Ml Cartridge) 3 mg IVPUSH Q3H PRN; Protocol PRN Reason: Pain, Severe (Pain Scale 7-10) Ondansetron HCl (Ondansetron Hcl 4 Mg/2 Ml Vial) 4 mg IVPUSH QID PRN PRN Reason: Nausea Oxycodone HCl (Oxycodone Hcl Immed Release 5 Mg Tablet) 5 mg PO Q6H PRN PRN Reason: Pain, Moderate(Pain Scale 4-6) Sodium Chloride (0.9 % Sodium Chloride Flush 3 Ml Syringe) [facility] Last Admin: 03/16/24 19:54 Dose: 3 ml Documented By: DENILSON Labs 03/15/24 05:39 03/15/24 05:39 Procedures Date of Service Date of Service: 03/17/24 Progress Note: A&P Assessment and plan (1) Sigmoid volvulus: Status: Acute Plan POD #2 following exploratory laparotomy, sigmoid colectomy, end colostomy for sigmoid volvulus. Doing very well post op, tolerating solid diet with good pain control. VSS. Abd exam benign with clean incisions, viable appearing ostomy with soft stool. Ostomy education today. Will dc later this morning with VNA services. Patient comfortable with plan. Time Spent With Patient Time: Total time managing care of this patient today ____ minutes. Quality Stroke Does the patient have a stroke diagnosis?: No VTE Prior VTE?: No VTE Risk Level:: Surgical - low VTE Device Contraindication: N/A - Device Ordered VTE Drug Contraindication: Treatment Not Indicated
[2024-03-17] MEDS: 0.9 % Sodium Chloride Flush 3 ML SYRINGE IVFLUSH (07:55)
[2024-03-17 11:37] VITALS: BMI 18.5
--- NOTE | 2024-03-17 11:44 | MHC.CLN ---
NUTRITION DIET=REGULAR. ADDING ENSURE BID TO PROMOTE NUTRITIONAL INTAKE. PROVIDES 700 KCALS, 40 G PROTEIN. REPORTS DECREASED INTAKE X A FEW WEEKS PRIOR TO ADMISSION. APPEARS THIN BUT NOT MALNOURISHED. FOLLOW FOR INTAKE AND DIET TOLERANCE. SEE CLINICAL NUTRITION ASSESSMENT 03/17/24.
--- NOTE | 2024-03-17 14:51 | P.F2F_ITS ---
Service Date Service Date: 03/17/24 Encounter Date of encounter: 03/17/24 Reasons for Services Signs and symptoms assessed: abdominal pain, ostomy appearance and output, PO intake Reason for correction: wound care and postoperative assessment and/or care Homebound: Leaving the home is medically contraindicated at this time without the asist of a device and/or another person due th the listed conditions above and below. Reason homebound: weakness related to hospital stay and unable to drive Homebound supporting statement: Ms. Marcial is s/p sigmoid resection, end colostomy for sigmoid volvulus. She will need VNA services for ostomy care. Certification: Based on the above findings, I certify that this patient is confined to the home and needs intermittent correction care, physical therapy and/or speech therapy, or continues to need occupational therapy. The patient is under my care, and I have initiated the establishment of the plan of care. The patient will be followed by a physician who will periodically review the plan of care. Time Spent With Patient Time: Total time managing care of this patient today ____ minutes.
--- NOTE | 2024-03-17 14:56 | P.DS_ITS ---
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 Pain is constant with episodes of increased pain. Denies nausea or vomiting and reports a mucousy bowel movement earlier today. She denies a previous episode of similar pain. She denies a previous history of abdominal surgery. In the emergency department she was noted to have a distended abdomen with tympany to percussion. CT abdomen and pelvis is suggestive of a sigmoid volvulus with areas of ischemia. She is admitted to the surgical service for further management of this volvulus. HOSPITAL COURSE: On 03/15/24, sigmoid resection, Santiago procedure without complication by Dr. Wray without complication. Markedly distended sigmoid colon with ischemic changes and colon was twisted x2 along a markedly distended/redundant mesentery. The patient tolerated the procedure well. She had an uncomplicated recovery course. She felt well following the procedure and her diet was advanced from clear liquids to solids as she began to pass stool via her ostomy on POD #1. Her activity was increased. Her rodriguez was removed. Ostomy education was performed. On POD #2, she felt well with minimal abd pain and was tolerating a solid diet with good ostomy output. Her abdomen was benign with clean incisions and beefy red ostomy. She was hemodynamically stable. She felt ready for discharge. She was discharged to home on 03/17/24 in stable condition with VNA services. She is to follow up in the office in 1 week for wound check. Status at Discharge Functional status at discharge: independent ambulation Overall status at discharge: patient is progressing back to baseline Time Attestation Discharge Coordination Time (in mins): 35 Quality: Safe Use of Opioids Does Pt have an Active Cancer Diagnosis on the Problem List?: No Quality: Stroke Does the patient have a stroke diagnosis?: No Physical Exam Vital Signs: Vital Signs: Last Vital Signs Temp 97.4 F 03/17/24 07:51 Pulse 57 03/17/24 07:51 Resp 16 03/17/24 07:51 BP 114/57 L 03/17/24 07:51 Pulse Ox 100 03/17/24 07:51 O2 Del Method Room Air 03/17/24 07:51 O2 Flow Rate 2 03/15/24 02:04 BMI result Body Mass Index 18.5 Const: General: comfortable, no acute distress and alert Orientation/consciousness: patient oriented x3 Resp: Effort & Inspection: normal respiratory effort GI: Other: ostomy viable appearing with soft stool in appliance Inspection: No distended and Yes incision (clean ) Palpation (GI): Soft to palpation, Tenderness to palpation present (GI) (mild incisional) and no guarding Percussion: Yes normal to percussion Skin: General skin exam: no rashes or lesions noted Neuro: General: patient oriented x3 DS: Data Data Completed and Pending Pending studies at discharge: Pending at discharge 03/15/24 00:43 Surgical [PTH] Routine Discharge Plan Discharge Anticipated Discharge Date/Time: 03/17/24 15:21 Patient Disposition: Home Health Service Discharge Diagnosis: s/p sigmoid resection, end colostomy Referrals: Trevon Wray MD [Physician] - 1 Week Physician,Douglas J [Primary Care Provider] - 1 Week Discharge Medications: New oxycodone 5 mg tablet 5 mg PO Q4H PRN (Reason: pain (scale score 7-10)) Qty: 24 0RF Rx Instructions: Partial Fill upon patient request. Continued alendronate 70 mg tablet 70 mg PO HOPE Discharge Orders: Discharge Order (Routine); Ordered 03/17/24 Ordered By: Kaylyn Mendoza Diet: Advance to usual diet Activity on Discharge: No heavy lifting Stand Alone Forms: Patient Portal Discharge page Print Language: [place] Islander Activity Restrictions/Additional Instructions: If the incision area is tender, you may apply an ice pack for short intervals (No more than 20 minutes on, followed by at least 20 minutes off). Do not apply heat. Do not use creams, lotions, or topical antibiotics. Ok to shower. You have tessie closing your incision and these will be removed approximately 10-14 days after surgery. No heavy lifting (>10lbs) or strenuous activity! Take Tylenol Extra-strength 1-2 tabs every 6 hours as needed. Oxycodone every 6- 8 hours as needed for pain. Colace 100 mg every day as needed for constipation. Follow up in office with Dr. Wray in 1 week. ([phone]) Colostomy care: change colostomy appliance every 3-4 days and as needed. Call Your Doctor If: -Your temperature exceeds 101.5? F -You experience excessive pain or swelling -You have an unexpected reaction to medication -You have excessive bleeding -You experience continued vomiting/nausea -Your incision begins to separate -Your incision shows signs of infection such as increased redness, swelling, excessive pain, drainage (light blood or clear fluid is normal) or heat Care Plan Goals: Return to baseline health and resume normal activities following recovery period. Eventual colostomy reversal. Health Concerns: sigmoid volvulus Plan of Treatment: s/p sigmoid resection, end colostomy colostomy custodial with VNA services f/u in office in 1 week Assessment: Doing well post op.
[2024-03-17 15:02] VITALS: BP 119/58; PULSE 67; RESP 18; TEMP 36.9; O2SAT 99
--- NOTE | 2024-03-17 15:34 | MHC.CM.PN ---
PT DCD HOMED WITH [facility]
== END 2024-03-17 15:51 | disposition home health service (06) | DRG 231 ==
LOC: HO.ED 21:46 → HO.SSS 23:01 → HO.SSSA 23:37 → HO.S3 03-15 01:09
PROVIDERS: Admitting Provider Surgery; Emergency Provider Emergency Medicine; PCP Family Medicine; Visit Provider Physician Assistant Medical
PROC: (CPT 49000; principal; 2024-03-14)
DX: K56.2 Volvulus (principal); K55.9 Vascular disorder of intestine, unspecified
CPT/HCPCS: 36415; 74176; 80048; 80053; 81003; 81025; 83605; 83690; 85025; 85610; 86850; 86900; 86901; 88307; 93005; 99285; C1758; J0131; J1100; J1170; J1885; J2250; J2270; J2405; J2543; J2704; J2795; J3010

== ENCOUNTER → 2024-03-14 22:41 | Outpatient (BNV) | payer OTHER, SELFPAY | PROVIDERS: Admitting Provider Surgery; Emergency Provider Emergency Medicine; Visit Provider Internal Medicine Cardiovascular Disease | DX: R10.9 Unspecified abdominal pain (principal) | CPT/HCPCS: 93010 ==

== ENCOUNTER → 2024-03-14 22:49 | Outpatient (BNV) | payer OTHER, SELFPAY | PROVIDERS: Emergency Provider Emergency Medicine; Visit Provider Surgery | DX: K56.2 Volvulus (principal) | CPT/HCPCS: 44143; 99024; 99222; G0180 ==

== ENCOUNTER 2024-03-25 08:13 | Outpatient (AMB) | payer OTHER, SELFPAY ==
[2024-03-25 08:15] VITALS: BMI 18.5
--- NOTE | 2024-03-25 08:15 | MHC.OFFVIS ---
Vital Signs 03/25/24 08:15 Height 5 ft 2 in Weight 101 lb 6.602 oz BMI 18.5 Intake Visit Reasons: s/p Exploratory Laparotomy Intake Note: Patient is seen in office for post op assessment post sigmoid resection, [place] procedure. Pt c/o: reports no complaints pertaining to surgery. 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 She underwent sigmoid colectomy with end-colostomy for sigmoid volvulus. She feels well and reports no abdominal pain. She is tolerating the ostomy very well. Denies nausea, vomiting or other abdominal she is. [facility] Surgical History H/O exploratory laparotomy (03/15/24) Social History Household Members: Friend(s) Housing: House Do you presently have visiting nurse or other home services: No Patient Tobacco Use Status: Never used Tobacco e-Cigarette/Vaping Use: Never Used service: No Physical Exam Vital Signs: BMI result Body Mass Index 18.5 Const General: no acute distress Nutritional Appearance: well nourished Orientation/consciousness: patient oriented x3 Limitations: no limitations Resp Effort & Inspection: normal respiratory effort, no audible wheezes, no cough and no respiratory distress GI Inspection: Yes normal to inspection Palpation (GI): Soft to palpation, nontender, no guarding and not rigid Abdomen image: 1. Midline incision 2. Ostomy site Neuro General: patient oriented x3 Extrem General: Yes normal to inspection Assessment & Plan Assessment & Plan (1) Sigmoid volvulus: Code(s): K56.2 - Volvulus Category: Medical Plan 40-year-old female patient status post [place] procedure for sigmoid volvulus. She is doing quite well and her wounds are healing nicely. Jewett removed today and the wounds found to be well healed. She will return in 1 month with plans for closure of colostomy after 06/15/2024. Coding Level of Care Code Global (15108) Diagnoses Sigmoid volvulus K56.2
== END 2024-03-25 08:41 | disposition home or self-care (01) ==
PROVIDERS: Visit Provider Surgery
DX: K56.2 Volvulus (principal)
CPT/HCPCS: 99024

== ENCOUNTER → 2024-03-25 08:13 | Outpatient (BNVA) | payer OTHER, SELFPAY | PROVIDERS: Visit Provider Surgery ==

== ENCOUNTER 2024-04-25 08:53 | Outpatient (AMB) | payer OTHER, SELFPAY ==
--- NOTE | 2024-04-25 09:16 | MHC.OFFVIS ---
Vital Signs 04/25/24 09:20 Height 5 ft 2 in Weight 86 lb 2 oz BMI 15.8 Intake Visit Reasons: 1 month f/u Exploratory Laparotomy Intake Note: Patient is seen in office for one month follow up visit, post laparotomy exploratory. Pt c/o: denies any concerns at the time of visit Yard Coordinator Required: No Accompanied by: Self / Same As Patient Allergies No Known Allergies Allergy (Verified 04/25/24 09:19) Medication List - Last Reconciled 04/25/24 by Trevon Wray MD alendronate 70 mg PO HOPE HPI Comments Details: 49-year-old female patient returning status post sigmoid colectomy with colostomy for sigmoid volvulus on 03/15/2024.? She tolerated the procedure well and reports no difficulties at this time.? Ostomy is functioning well.? She returns today to discuss closure of her colostomy. [facility] Medical History (Updated 04/25/24 @ 10:19 by Trevon Wray MD) Sigmoid volvulus Surgical History (Updated 04/25/24 @ 10:20 by Trevon Wray MD) Status post Santiago's procedure H/O exploratory laparotomy (03/15/24) Social History Household Members: Friend(s) Housing: House Do you presently have visiting nurse or other home services: No Patient Tobacco Use Status: Never used Tobacco e-Cigarette/Vaping Use: Never Used service: No Review of Systems Const All systems reviewed & are unremarkable except as noted in HPI and below Physical Exam Vital Signs: BMI result Body Mass Index 15.8 Const General: no acute distress Nutritional Appearance: well nourished Orientation/consciousness: patient oriented x3 Limitations: no limitations Resp Effort & Inspection: normal respiratory effort, no audible wheezes, no cough and no respiratory distress GI Other: Incision lower midline clean, dry, and intact. Ostomy pink and functioning well. Inspection: Yes normal to inspection Palpation (GI): Soft to palpation, nontender, no guarding and not rigid Neuro General: patient oriented x3 Extrem General: Yes normal to inspection Assessment & Plan Assessment & Plan (1) Sigmoid volvulus: Code(s): K56.2 - Volvulus Category: Medical Plan 49-year-old female returning 1 month following Santiago procedure for sigmoid volvulus. She was doing quite well and her wounds are healing nicely. I discussed next steps including closure of colostomy. After review of the procedure, risks, and alternatives, she consents to the closure of colostomy. She will be scheduled as a short-stay admit in the end of May or early June 2024. She will need a bowel prep and oral antibiotics prior to the procedure. Coding Level of Care Code Global (56541) Diagnoses Sigmoid volvulus K56.2
[2024-04-25 09:20] VITALS: BMI 15.8
== END 2024-04-25 09:47 | disposition home or self-care (01) ==
PROVIDERS: PCP Family Medicine; Visit Provider Surgery
DX: K56.2 Volvulus (principal)
CPT/HCPCS: 99024

== ENCOUNTER → 2024-04-25 08:53 | Outpatient (BNVA) | payer OTHER, SELFPAY | PROVIDERS: PCP Family Medicine; Visit Provider Surgery ==

== ENCOUNTER → 2024-06-27 10:13 | Outpatient (BNV) | payer OTHER, SELFPAY | PROVIDERS: Admitting Provider Surgery; PCP Family Medicine; Visit Provider Internal Medicine | DX: Z01.810 Encounter for preprocedural cardiovascular examination (principal) | CPT/HCPCS: 93010 ==

== ENCOUNTER 2024-07-09 06:01 | Inpatient (IN) | payer OTHER, SELFPAY ==
[2024-06-27 09:51] VITALS: BP 96/46; PULSE 64; RESP 18; O2SAT 99; BMI 16.4
--- NOTE | 2024-06-27 10:13 | ECG_ITS ---
Test Reason : PRE OP Blood Pressure : / mmHG Vent. Rate : 060 BPM Atrial Rate : 060 BPM P-R Int : 166 ms QRS Dur : 068 ms QT Int : 410 ms P-R-T Axes : 075 058 066 degrees QTc Int : 410 ms Normal sinus rhythm Normal ECG When compared with ECG of 14-MAR-2024 22:55, No significant change was found Referred By: Radha Min Electronically Signed By:MELISSA FRANCOIS
--- NOTE | 2024-07-08 10:32 | P.CONAN_ITS ---
Documented by User: Karoline Viera NP 07/08/24 10:33 HPI - Anesthesia Eval Consult details Narrative: 49yo F for Colostomy Closure PAT 06/27/[address] Mechelle OSEGUERA Active Problems Active Problems: All Active Problems Sigmoid volvulus (Acute) Past Medical History Medical History Osteoporosis Sigmoid volvulus Surgical History Surgical History H/O colonoscopy H/O exploratory laparotomy (03/15/24) Social History Social History Household Members: Friend(s) Housing: House Are you a primary director of managed care to a significant other at home: No Do you presently have visiting nurse or other home services: No Patient Tobacco Use Status: Never used Tobacco e-Cigarette/Vaping Use: Never Used Use of substances other than those prescribed or required for medical reasons: No Have you been hit, kicked, punched, or otherwise hurt by someone within the past year? If so, by whom?: No Spiritual Healthcare Practices: none Moravian Healthcare Practices: none Cultural Healthcare Practices: none Are you DNR?: No Advance Directives: No (friend Dilcia is primary contact) Advance Directives Information Provided: Yes (as above noted) Advance Directives on File: No Recently lost weight without trying: No Eating poorly because of decreased appetite: No Nutrition Risks: No Nutritional Risk Patient : No FDLMP: n/a Poor oral hygiene: No service: No Meds Allergies Allergy/AdvReac Type Severity Reaction Status Date / Time No Known Allergies Allergy Verified 07/09/24 06:34 Home Medications ?Medication ?Instructions ?Recorded ?Confirmed ?Last Taken ?Type alendronate 70 mg tablet 70 mg PO HOPE 03/15/24 06/26/24 07/06/24 History Exam Height,Weight and Vital Signs: Height 5 ft 2 in Weight 40.6 kg Last Vital Signs Pulse 64 06/27/24 09:51 Resp 18 06/27/24 09:51 BP 96/46 L 06/27/24 09:51 Pulse Ox 99 06/27/24 09:51 O2 Del Method Room Air 06/27/24 09:51 Pertinent Lab Results Pertinent Lab Results: Laboratory Tests 03/15/24 05:39 WBC 10.0 Hgb 12.1 Hct 36.9 L Plt Count 216 Sodium 138 Potassium 3.9 Chloride 108 Carbon Dioxide 23 BUN 11 Creatinine 0.70 Narrative Narrative: EKG 06/2024 Vent. Rate : 060 BPM Atrial Rate : 060 BPM P-R Int : 166 ms QRS Dur : 068 ms QT Int : 410 ms P-R-T Axes : 075 058 066 degrees QTc Int : 410 ms Normal sinus rhythm Normal ECG When compared with ECG of 14-MAR-2024 22:55, No significant change was found Assessment and Plan Assessment Anesthesia Assessment: Chart Reviewed Documented by User: Brown Castro MD 07/09/24 07:26 PMF Past Medical History Medical History Osteoporosis Sigmoid volvulus Family History Family history of problems with anesthesia: No Surgical History Surgical History H/O colonoscopy H/O exploratory laparotomy (03/15/24) History of Problems with Anesthesia: No Social History Social History Household Members: Friend(s) Housing: House Are you a primary director of managed care to a significant other at home: No Do you presently have visiting nurse or other home services: No Patient Tobacco Use Status: Never used Tobacco e-Cigarette/Vaping Use: Never Used Use of substances other than those prescribed or required for medical reasons: No Have you been hit, kicked, punched, or otherwise hurt by someone within the past year? If so, by whom?: No Spiritual Healthcare Practices: none Moravian Healthcare Practices: none Cultural Healthcare Practices: none Are you DNR?: No Advance Directives: No (friend Dilcia is primary contact) Advance Directives Information Provided: Yes (as above noted) Advance Directives on File: No Recently lost weight without trying: No Eating poorly because of decreased appetite: No Nutrition Risks: No Nutritional Risk Patient : No FDLMP: n/a Poor oral hygiene: No service: No Meds Allergies Allergy/AdvReac Type Severity Reaction Status Date / Time No Known Allergies Allergy Verified 07/09/24 06:34 Home Medications ?Medication ?Instructions ?Recorded ?Confirmed ?Last Taken ?Type alendronate 70 mg tablet 70 mg PO HOPE 03/15/24 06/26/24 07/06/24 History Exam Airway Mallampati Class: II TM Dist: >3cm Neck ROM: Full Loose/Missing/Broken Teeth: No Heart: ok Lungs: ok Assessment and Plan Assessment Anesthesia Assessment: Anesthesia Plan Discussed Final Anesthetic Review Family History of Problems with Anesthesia: No History of Problems with Anesthesia: No NPO: Yes ASA Class: III Final Preanesthetic Review: No Changes in Pt Med Stat, Meds/Allgs Chart Reviewed, Consent Obtained/Reviewed and Anes Risks/Benef Reviewed Patient Risk: Intermediate Procedure Risk: Intermediate Anesthetic Plan Anesthetic Plan: GA and Agree w/ Assess. and Plan Disposition: Standard PACU
[2024-07-09] VITALS (11 sets, daily range): BP systolic 96–115; BP diastolic 49–68; PULSE 54–69; RESP 8–16; TEMP 36.1–37; O2SAT 98–100; BMI 15.4
[2024-07-09 06:20] LABS: UPreg QC Valid YES; Urine Pregnancy NEGATIVE (NEGATIVE)
[2024-07-09] MEDS: Lactated Ringers 1,000 ML 100 ML IVCONT (06:33)
--- NOTE | 2024-07-09 07:19 | MHC.SHP ---
Pre-Procedural Eval Section A - 24 Hr Update-Section A only Date of Service: 07/09/24 The patient is an INPATIENT: No Changes since office visit: Yes Patient answered all questions; No Cold of Flu in the past 2 weeks, No New Medical Problems and No Changes in Medication The patient has been examined within 24 hours of the surgical procedure. The History & Physical has been completed within 30 days and I have reviewed it.: No Section B - Complete if H&P > 30 days Chief Complaint: Closure of colostomy Details of Present Illness: Patient feels well and denies any ongoing abdominal symptoms Relevant Family History (Specify if Yes): No Relevant Social History: None Present Medications: see Short Stay Collaborative assessment Medical History: No relevant PMH History of Previous Operations: Relevant previous surgery/procedure and date(s) (Sigmoid volvulus, colostomy sigmoid colectomy) Allergies: Allergies Allergy/AdvReac Type Severity Reaction Status Date / Time No Known Allergies Allergy Verified 07/09/24 06:34 Review of Systems Sugical H&P ROS: Negative: Constitution, Cardiovascular, Respiratory, Hem-Onc and Gastrointestinal Exam Surgical H&P Exam: Normal: Heart, Normal: Lungs, Normal: Extremities, Normal: Abdomen and Normal: Skin Plan Diagnosis/Plan: Unchanged I have reviewed the history and physical and performed a pertinent physical examination on my patient. No changes have occurred unless specified. Time Spent With Patient Time: Total time managing care of this patient today ____ minutes.
--- NOTE | 2024-07-09 07:25 | PHA.MEDREC ---
Pharmacy Consult ? Medication Reconciliation Pharmacy has reviewed the medication reconciliation completed by nursing. Spoke with patient she is on only alendronate.
--- NOTE | 2024-07-09 09:45 | P.OP_ITS ---
Operative Note Operative Note Date of Service: 07/09/24 Narrative: Preoperative diagnosis: Sigmoid volvulus status post Santiago's procedure Postoperative diagnosis: Same Procedure: Closure of colostomy Surgeon: Trevon Wray MD Pest Technician: Kaylyn Mendoza PA-C Anesthesia: General endotracheal Indications for procedure: 49-year-old female patient presenting approximately 3 months ago with a sigmoid volvulus with marked distention of her colon. She underwent a sigmoid colectomy with end-colostomy. She tolerated the procedure well and returns today for closure of colostomy. Operative findings: Normal-appearing large and small bowel. Minimal adhesions appreciated. Specimen: Colostomy, EEA donuts Estimated blood loss: 10 mL Complications: None Procedure details: Patient was brought to the OR and placed in a supine position. After administering general anesthesia the patient was placed in a lithotomy position. A De La Cruz catheter was placed. The patient's abdomen was prepped with ChloraPrep and perineum prepped with Betadine. Sterile drapes were then applied. A surgical time-out was called the consent confirmed. Patient received preoperative antibiotics and compression stockings were in place. An elliptical incision was then made around the colostomy site which had previously been sutured closed. The incision was carried out through subcutaneous tissue around the colostomy wall past fascia and into the abdominal cavity. The colon was further mobilized using electrocautery. Mesentery was divided using LigaSure. A pursestring clamp was then applied to the colon and a Shawn needle pursestring applied. The distal bowel was excised and sent as colostomy to pathology. The colon was then dilated using the EEA sizers up to 28 which passed easily. An EEA stapler was then obtained and the anvil inserted into the proximal colon and the pursestring tied off. Attention was then directed to the rectal stump. A EEA Sizer was then inserted in the rectal stump identified through the colostomy incision. This was further mobilized and isolated. The EEA stapler there was then inserted and the spike placed through the staple line of the rectal stump. Anvil was then connected to the stapler and the stapler fired. Three interrupted Surgilon sutures were then placed to reinforce the anastomosis using a Lembert suture. A leak test was then performed by instilling air into the rectum while the pelvis was filled with saline. No leak could be identified. The abdomen was then irrigated with saline solution and suctioned dry. Peritoneum was then closed using a running 0 Polysorb suture. Rectus muscle was reapproximated using interrupted 0 Polysorb sutures. Fascia was then closed using a running 0 Polysorb suture. Dermis was reapproximated using interrupted 3-0 Polysorb sutures. Skin was closed using a running subcuticular 4-0 Polysorb suture. Steri-Strips, 2 x 2 gauze and Tegaderm were then applied. The patient tolerated the procedure well. Sponge, instrument, and needle counts reported as correct. The patient was transferred to PACU in stable condition.
[2024-07-09] MEDS: Dextrose 5 % and Lactated Ring 1,000 ML 80 ML IVCONT ×2 (12:00→23:54)
[2024-07-09] MEDS: 0.9 % Sodium Chloride Flush 3 ML SYRINGE IVFLUSH (12:02)
[2024-07-09] MEDS: ondansetron HCL 4 MG/2 ML VIAL IVPUSH (13:18)
[2024-07-09] MEDS: Acetaminophen 1,000 MG/100 ML PIGGYBACK 400 MG IV ×2 (15:27→20:51)
[2024-07-10] MEDS: Acetaminophen 1,000 MG/100 ML PIGGYBACK 400 MG IV ×2 (02:55→08:45)
[2024-07-10 03:19] VITALS: BP 96/51; PULSE 58; RESP 15; TEMP 36.4; O2SAT 99
[2024-07-10 06:45] LABS: MANUAL DIFF FLAG NO
[2024-07-10 06:54] LABS: Basophils Percent Auto 0.2 % (0-2); Hematocrit 36.5 % (37.0-47.0); Hemoglobin 11.9 g/dl (12.0-16.0); Imm Gran Abs Auto 0.04 X10*3/uL (0.00-0.03); Imm Gran Pct Auto 0.4 % (0.0-0.4); Lymphocytes Absolute Auto 0.7 X10*3/uL (1.2-4.9); Lymphocytes Percent Auto 6.7 % (20-40); Mean Corpuscular HGB Conc 32.6 g/dl (31.0-35.0); Mean Corpuscular Hemoglobin 30.1 pg (27.0-33.0); Mean Corpuscular Volume 92.4 fL (80.0-98.0); Monocytes Absolute Auto 0.5 X10*3/uL (0.1-1.2); Monocytes Percent Auto 5.4 % (2-11); Neutrophils Absolute Auto 8.6 x10*3/uL (2.0-8.3); Neutrophils Percent Auto 87.3 % (45-73); Platelet Count 256 X10*3/uL (160-400); Red Blood Count 3.95 X10*6/uL (4.20-5.50); Red Cell Distribution Width 14.3 % (11.0-16.0); White Blood Count 9.9 X10*3/uL (4.8-10.8)
[2024-07-10 07:08] LABS: Anion Gap 12 (12-20); Blood Urea Nitrogen 7 mg/dL (9-16); Calcium 8.6 mg/dL (8.4-10.2); Carbon Dioxide 23 mmol/L (22-29); Chloride 108 mmol/L (96-108); Estimated Glomerular Filt Rate > 60; Glucose Random 127 mg/dL (60-115); Potassium 4.1 mmol/L (3.3-5.1); Sodium 139 mmol/L (135-145)
--- NOTE | 2024-07-10 07:30 | P.PNGS_ITS ---
Subjective Subjective Date of Service: 07/10/24 <Kaylyn Mendoza PA-C - Last Filed: 07/10/24 07:33> 07/10/24 <Trevon Wray MD - Last Filed: 07/10/24 08:04> Interval history: Feels well this morning. Denies abd pain. Passing flatus. Had some nausea last night and did not have much PO intake. OOB to bathroom. <Kaylyn Mendoza PA-C - Last Filed: 07/10/24 07:33> Physical Exam 2 Vital Signs: Vital Signs: Last Vital Signs Temp 97.5 F 07/10/24 03:19 Pulse 58 07/10/24 03:19 Resp 15 07/10/24 03:19 BP 96/51 L 07/10/24 03:19 Pulse Ox 99 07/10/24 03:19 O2 Del Method Room Air 07/10/24 03:19 O2 Flow Rate 2 07/09/24 10:35 BMI result Body Mass Index 15.4 <Kaylyn Mendoza PA-C - Last Filed: 07/10/24 07:33> Const: General: comfortable, no acute distress and alert <Kaylyn Mendoza PA-C - Last Filed: 07/10/24 07:33> Orientation/consciousness: patient oriented x3 <Kaylyn Mendoza PA-C - Last Filed: 07/10/24 07:33> Resp: Effort & Inspection: normal respiratory effort <Kaylyn Mendoza PA-C - Last Filed: 07/10/24 07:33> GI: Inspection: No distended and Yes incision (dressing clean and intact) <Kaylyn Mendoza PA-C - Last Filed: 07/10/24 07:33> Palpation (GI): Soft to palpation, Tenderness to palpation present (GI) (very mild incisional) and no guarding <SWAPNA Barillas Last Filed: 07/10/24 07:33> Percussion: Yes normal to percussion <SWAPNA Barillas Last Filed: 07/10/24 07:33> Skin: General skin exam: no rashes or lesions noted <SWAPNA Barillas Last Filed: 07/10/24 07:33> Neuro: General: patient oriented x3 and moves all extremities <Kaylyn Mendoza PA-C - Last Filed: 07/10/24 07:33> Objective Data Active Medications Calcium Carbonate (Calcium Carbonate 750 Mg Tab.Chew) 750 mg PO Q4H PRN PRN Reason: Heartburn Hydromorphone HCl (Hydromorphone Hcl 0.5 Mg/0.5 Ml Syringe) 0.25 mg IVPUSH Q3H PRN; Protocol PRN Reason: Pain, Severe (Pain Scale 7-10) Acetaminophen (Ofirmev) 1,000 mg in 100 mls @ 400 mls/hr IV Q6H [facility] Stop: 07/10/24 09:14 Last Infusion: 07/10/24 03:17 Dose: Infused Documented By: SILVA Dextrose/Lactated Ringer's (D5lr) 1,000 mls @ 80 mls/hr IVCONT .[id number] [facility] Last Admin: 07/09/24 23:54 Dose: 80 mls/hr Documented By: SILVA Magnesium Hydroxide (Milk Of Magnesia 30 Ml Oral.Susp) 30 ml PO DAILY PRN PRN Reason: Constipation Melatonin (Melatonin 3 Mg Tablet) 6 mg PO BEDTIME PRN PRN Reason: Insomnia Ondansetron HCl (Ondansetron Hcl 4 Mg/2 Ml Vial) 4 mg IVPUSH QID PRN PRN Reason: Nausea Last Admin: 07/09/24 13:18 Dose: 4 mg Documented By: NILDA-RIVLA Oxycodone HCl (Oxycodone Hcl Immed Release 5 Mg Tablet) 5 mg PO Q6H PRN PRN Reason: Pain, Moderate(Pain Scale 4-6) Prochlorperazine Edisylate (Prochlorperazine Edisylate 10 Mg/2 Ml Vial) 10 mg IVPUSH Q6H PRN PRN Reason: Nausea and Vomiting Sodium Chloride (0.9 % Sodium Chloride Flush 3 Ml Syringe) 3 ml IVFLUSH QSHIFT [facility] Last Admin: 07/09/24 21:26 Dose: Not Given Documented By: SILVA Non-Admin Reason: IV Running <Kaylyn Mendoza PA-C - Last Filed: 07/10/24 07:33> Labs CBC & Chem 7: 07/10/24 05:16 07/10/24 05:15 <Kaylyn Mendoza PA-C - Last Filed: 07/10/24 07:33> Labs: Laboratory Results - last 24 hr 07/10/24 07/10/24 05:15 05:16 MCV 92.4 MCH 30.1 MCHC 32.6 RDW 14.3 Plt Count 256 MPV 9.0 L Immature Gran % (Auto) 0.4 Neut % (Auto) 87.3 H Lymph % (Auto) 6.7 L Vernon % (Auto) 5.4 Eos % (Auto) 0.0 Baso % (Auto) 0.2 Lymph # (Auto) 0.7 L Vernon # (Auto) 0.5 Eos # (Auto) 0.0 Baso # (Auto) 0.0 Abs Immat Gran (auto) 0.04 H Absolute Neuts (auto) 8.6 H Absolute Nucleated RBC 0.000 Nucleated RBC % (auto) 0.0 Anion Gap 12 Estim Creat Clear Calc 62.0 Estimated GFR > 60 Random Glucose 127 H Calcium 8.6 D <Kaylyn Mendoza PA-C - Last Filed: 07/10/24 07:33> Procedures Date of Service Date of Service: 07/10/24 <Kaylyn Mendoza PA-C - Last Filed: 07/10/24 07:33> 07/10/24 <Trevon Wray MD - Last Filed: 07/10/24 08:04> Progress Note: A&P Assessment and plan (1) History of colostomy reversal: Status: Acute <Kaylyn Mendoza PA-C - Last Filed: 07/10/24 07:33> Assessment and Plan: POD #1 s/p closure of colostomy for sigmoid volvulus status post Santiago's procedure. Doing very well post op, no pain, with evidence of GI function. VSS. Abd exam benign with dressing clean and intact, minimal tenderness. Cont clear liquids this morning, if tolerating, advance to solids. Dc rodriguez, dec IVF. Increase activity, IS use. Await BM. <Kaylyn Mendoza PA-C - Last Filed: 07/10/24 07:33> POD #1 s/p closure of colostomy for sigmoid volvulus status post Santiago's procedure. Doing very well post op, no pain, with evidence of GI function. VSS. Abd exam benign with dressing clean and intact, minimal tenderness. Cont clear liquids this morning, if tolerating, advance to solids. Dc ysabel rodriguez IVF. Increase activity, IS use. Await BM. Patient is feeling well this morning but did have some nausea last evening. Passing flatus this morning. Would like to stay on clear liquids for now with dietary supplements. Encouraged out of bed and ambulation. Incisions are clean and intact without discharge. <Trevon Wray MD - Last Filed: 07/10/24 08:04> Time Spent With Patient Time: Total time managing care of this patient today ____ minutes. <Kaylyn Mendoza PA-C - Last Filed: 07/10/24 07:33> Quality Stroke Does the patient have a stroke diagnosis?: No <Kaylyn Mendoza PA-C - Last Filed: 07/10/24 07:33> VTE Prior VTE?: No <Kaylyn Mendoza PA-C - Last Filed: 07/10/24 07:33> VTE Risk Level:: Surgical - moderate <SWAPNA Barillas Last Filed: 07/10/24 07:33> VTE Device Contraindication: N/A - Device Ordered <Kaylyn Mendoza PA-C - Last Filed: 07/10/24 07:33> VTE Drug Contraindication: N/A - Med Ordered <Kaylyn Mendoza PA-C - Last Filed: 07/10/24 07:33>
[2024-07-10 07:38] VITALS: BP 88/51; PULSE 55; RESP 18; TEMP 36.4; O2SAT 99
[2024-07-10 08:06] VITALS: BP 90/58
--- NOTE | 2024-07-10 08:17 | HO.POSTANES ---
Post Anesthesia Evaluation Post Anesthesia Evaluation Date of Service: 07/10/24 Vital Signs: Vital Signs Temp Pulse Resp BP Pulse Ox O2 Del Method 07/10/24 08:06 90/58 L 07/10/24 07:38 97.6 F 55 18 88/51 L 99 Room Air 07/10/24 03:19 97.5 F 58 15 96/51 L 99 Room Air Anesthesia: General Endotracheal-GETA Mental Status: Awake Pain Control: Satisfactory Nausea/Vomiting: Mild Hydration: Adequate Anesthesia-Related Issues: No Anes. Related Issues
[2024-07-10] MEDS: Enoxaparin Sodium 40 MG/0.4 ML SYRINGE SUBCUT (08:43)
[2024-07-10] MEDS: 0.9 % Sodium Chloride Flush 3 ML SYRINGE IVFLUSH ×3 (08:47→19:56)
--- NOTE | 2024-07-10 10:36 | MHC.CM.PN ---
POLICY ADVISER AND CM MET WITH PT AT BEDSIDE PT LIVES ALONE PT HAS NO SERVICES PT DOES NOT USE DME PT HAS HCP LISTING [facility] P:[phone] PT INSURANCE IS [facility] DCP: HOME NO SERVICES VIA PRIVATE TRANSPORT
[2024-07-10 14:35] VITALS: BMI 15.4
--- NOTE | 2024-07-10 14:42 | MHC.CLN ---
NUTRITION CONSULT FOR UNDERWEIGHT. BMI=15.4. DIET ADVANCED TODAY TO REGULAR, LOW FIBER. SUSPECT HX GI MALABSORPTION DUE TO BOWEL ISCHEMIA. ADDING ENSURE BID TO PROVIDE ADDITIONAL 700 KCALS, 60 G PROTEIN. INTAKE VARIABLE. FOLLOW FOR DIET TOLERANCE AND INTAKE. SEE CLINICAL NUTRITION ASSESSMENT 07/10/24.
[2024-07-10 15:34] VITALS: BP 109/53; PULSE 69; RESP 18; TEMP 36.4; O2SAT 100
[2024-07-10 19:45] VITALS: TEMP 36.1
[2024-07-10 19:46] VITALS: BP 100/50; PULSE 69; RESP 15; TEMP 36.2; O2SAT 99
[2024-07-11 03:01] VITALS: BP 114/56; PULSE 60; RESP 15; TEMP 36.8; O2SAT 97
[2024-07-11] MEDS: Acetaminophen 325 MG TABLET 650 MG PO (07:15)
[2024-07-11] MEDS: 0.9 % Sodium Chloride Flush 3 ML SYRINGE IVFLUSH (07:16)
[2024-07-11 07:39] VITALS: BP 105/55; PULSE 60; RESP 18; TEMP 36.6; O2SAT 99
--- NOTE | 2024-07-11 07:59 | PM.PNGS ---
Subjective Subjective Date of Service: 07/11/24 Interval history: Feels well this morning. Tolerating solid diet. Some mild incisional pain but comfortable with PO tylenol. OOB and ambulating. Had two small bloody BMs, second one was less bloody. Would like to go home. Physical Exam Vital Signs: Vital Signs: Last Vital Signs Temp 97.9 F 07/11/24 07:39 Pulse 60 07/11/24 07:39 Resp 18 07/11/24 07:39 BP 105/55 L 07/11/24 07:39 Pulse Ox 99 07/11/24 07:39 O2 Del Method Room Air 07/11/24 07:39 O2 Flow Rate 2 07/09/24 10:35 BMI result Body Mass Index 15.4 Const: General: comfortable, no acute distress and alert Orientation/consciousness: patient oriented x3 GI: Inspection: No distended and Yes incision (clean) Palpation (GI): Soft to palpation, Tenderness to palpation present (GI) (very mild incisional) and no guarding Skin: General skin exam: no rashes or lesions noted Neuro: General: patient oriented x3 and moves all extremities Objective Data Active Medications Acetaminophen (Acetaminophen 325 Mg Tablet) 650 mg PO Q6H PRN PRN Reason: Pain, Mild (Pain Scale 1-3) Last Admin: 07/11/24 07:15 Dose: 650 mg Documented By: GRAZRACHELE Calcium Carbonate (Calcium Carbonate 750 Mg Tab.Chew) 750 mg PO Q4H PRN PRN Reason: Heartburn Hydromorphone HCl (Hydromorphone Hcl 0.5 Mg/0.5 Ml Syringe) 0.25 mg IVPUSH Q3H PRN; Protocol PRN Reason: Pain, Severe (Pain Scale 7-10) Magnesium Hydroxide (Milk Of Magnesia 30 Ml Oral.Susp) 30 ml PO DAILY PRN PRN Reason: Constipation Melatonin (Melatonin 3 Mg Tablet) 6 mg PO BEDTIME PRN PRN Reason: Insomnia Ondansetron HCl (Ondansetron Hcl 4 Mg/2 Ml Vial) 4 mg IVPUSH QID PRN PRN Reason: Nausea Last Admin: 07/09/24 13:18 Dose: 4 mg Documented By: NILDA-RIVLA Oxycodone HCl (Oxycodone Hcl Immed Release 5 Mg Tablet) 5 mg PO Q6H PRN PRN Reason: Pain, Moderate(Pain Scale 4-6) Prochlorperazine Edisylate (Prochlorperazine Edisylate 10 Mg/2 Ml Vial) 10 mg IVPUSH Q6H PRN PRN Reason: Nausea and Vomiting Sodium Chloride (0.9 % Sodium Chloride Flush 3 Ml Syringe) 3 ml IVFLUSH QSHIFT [facility] Last Admin: 07/11/24 07:16 Dose: 3 ml Documented By: SALVATORE Labs 07/10/24 05:16 07/10/24 05:15 Procedures Date of Service Date of Service: 07/11/24 Progress Note: A&P Assessment and plan (1) History of colostomy reversal: Status: Acute (2) Sigmoid volvulus: Status: Acute Plan POD #2 s/p closure of colostomy for sigmoid volvulus status post Santiago's procedure. Tolerating solid diet, minimal incisional pain. Some blood per rectum yesterday. Doing very well post op, abd benign with clean incision. Hemodynamically stable. Stable for dc to home today. Patient comfortable with plan. F/u in office in 1 week. Time Spent With Patient Time: Total time managing care of this patient today ____ minutes. Quality Stroke Does the patient have a stroke diagnosis?: No VTE Prior VTE?: No VTE Risk Level:: Surgical - moderate VTE Device Contraindication: N/A - Device Ordered VTE Drug Contraindication: N/A - Med Ordered
--- NOTE | 2024-07-11 08:39 | MHC.CM.PN ---
PT WILL DC HOME TODAY WITH NO SERVICES VIA PRIVATE TRANSPORT
--- NOTE | 2024-07-11 11:14 | P.DS_ITS ---
DS: Providers Provider Date of Service: 07/11/24 Date of admission: 07/09/24 06:01 Date of discharge: 07/11/24 Primary care physician: Kathia King MD Attending physician on admission: Trevon Wray Attending physician on discharge: Trevon Wray DS: Diagnosis Discharge Diagnosis (1) History of colostomy reversal: Status: Acute (2) Sigmoid volvulus: Status: Acute DS: Summary Hospital Course Hospital Course: HPI AT ADMISSION: 49-year-old female patient presenting approximately 3 months ago with a sigmoid volvulus with marked distention of her colon. She underwent a sigmoid colectomy with end-colostomy. She tolerated the procedure well and returns today for closure of colostomy. HOSPITAL COURSE: On 07/09/24, closure of colostomy was performed by Dr. Wray without immediate complication. The patient tolerated the procedure well. She had an uneventful post operative course. On POD #1, she had minimal pain and was passing flatus. Her rodriguez was discontinued. She was tolerating clear liquids. She was ambulating. She was advanced to a solid diet. The following day, she was tolerating a solid diet without nausea or vomiting. She continued to pass flatus and had some blood per rectum but amt was small and improving. Her pain was mild and controlled with PO tylenol. Her abdomen was benign with clean incision and she was hemodynamically stable. She was ambulating without difficulty. She was discharged to home on 07/11/24 in stable condition. She is to follow up in 1 week in the office. Status at Discharge Functional status at discharge: independent ambulation Overall status at discharge: patient is progressing back to baseline Time Attestation Discharge Coordination Time (in mins): 35 Quality: Safe Use of Opioids Does Pt have an Active Cancer Diagnosis on the Problem List?: No Quality: Stroke Does the patient have a stroke diagnosis?: No Physical Exam Vital Signs: Vital Signs: Last Vital Signs Temp 97.9 F 07/11/24 07:39 Pulse 60 07/11/24 07:39 Resp 18 07/11/24 07:39 BP 105/55 L 07/11/24 07:39 Pulse Ox 99 07/11/24 07:39 O2 Del Method Room Air 07/11/24 07:39 O2 Flow Rate 2 07/09/24 10:35 BMI result Body Mass Index 15.4 Const: General: comfortable, no acute distress and alert Orientation/consciousness: patient oriented x3 Resp: Effort & Inspection: normal respiratory effort GI: Inspection: No distended and Yes incision (clean) Palpation (GI): Soft to palpation and Tenderness to palpation present (GI) (mild incisional) Percussion: Yes normal to percussion Skin: General skin exam: no rashes or lesions noted Neuro: General: patient oriented x3 and moves all extremities DS: Data Data Completed and Pending Completed studies during hospitalization [Text1]: 07/09/24 09:37 Surgical [PTH] Routine Labeled colostomy and EEA donut , (revision): Intact mucocutaneous anastomosis with inflammation, fibrosis, granulation tissue, and focal foreign body granulomatous reaction to refractile and vegetable material Also two annular portions of bowel consistent with anastomotic rings, with focal active colitis/proctitis with crypt abscesses and foamy lamina propria macrophages (diversion colitis vs. infection; clinical correlation necessary). Procedures Bypass Descending Colon to Cutaneous, Open Approach (03/14/24) Excision of Sigmoid Colon, Open Approach (03/14/24) Discharge Plan Discharge Anticipated Discharge Date/Time: 07/11/24 07:59 Patient Disposition: Home, Self-Care Discharge Diagnosis: Sigmoid volvulus, s/p colostomy, closure of colostomy Referrals: Kathia King MD [Primary Care Provider] - 1 Week Discharge Medications: Continued alendronate 70 mg tablet 70 mg PO HOPE Discharge Orders: Discharge Order (Routine); Ordered 07/11/24 Ordered By: Trevon Wray Diet: Advance to usual diet Activity on Discharge: No heavy lifting Stand Alone Forms: Patient Portal Discharge page Print Language: Turkish Activity Restrictions/Additional Instructions: No lifting > 10 pounds for 1 month No driving for one week After 24 hours, use warm compress or heating pad on low as needed Take Tylenol Extra-strength 1-2 tabs every 6 hours for the first day, then prn Colace 100 mg every day as needed for constipation Follow up in office in one week. Care Plan Goals: Return to normal diet and activity Health Concerns: colostomy following sigmoid volvulus Plan of Treatment: Closure of colostomy on 07/09/2024 Assessment: Sigmoid volvulus Discharge Date/Time: 07/11/24 09:43
== END 2024-07-11 09:43 | disposition home or self-care (01) | DRG 231 ==
LOC: HO.SSSA 06:04 → HO.S3 10:14
PROVIDERS: Nurse Practitioner; Admitting Provider Surgery; PCP Family Medicine; Visit Provider Surgery
PROC: 0DSP0ZZ Reposition Rectum, Open Approach (ICD-10-PCS; CPT 44620; principal; 2024-07-09 07:30)
DX: Z43.3 Encounter for attention to colostomy (principal); G89.18 Other acute postprocedural pain; Z79.899 Other long term (current) drug therapy
CPT/HCPCS: 36415; 80048; 81025; 85025; 88304; 88305; 93005; C1758; J0131; J1100; J1171; J1650; J2003; J2405; J2704; J3010

== ENCOUNTER → 2024-07-09 06:01 | Outpatient (BNV) | payer OTHER, SELFPAY | PROVIDERS: Admitting Provider Surgery; PCP Family Medicine; Visit Provider Surgery | DX: Z98.890 Other specified postprocedural states (principal); K56.2 Volvulus | CPT/HCPCS: 44626; 99024 ==

== ENCOUNTER 2024-07-22 08:54 | Outpatient (AMB) | payer OTHER, SELFPAY ==
--- NOTE | 2024-07-22 09:02 | A.OFFVIS_ITS ---
Vital Signs 3 07/22/24 09:10 Height 5 ft 2 in Weight 193 lb 9.054 oz BMI 35.4 BP 116/57 L Blood Pressure Location Lt brachial Position Sitting Pulse 80 Intake Visit Reasons: S/P closure of colostomy Intake Note: Patient is sen in office for post op assessment post closure of colostomy. 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 She subsequently underwent colostomy reversal on 07/09/2024. She tolerated this procedure well and returns today for postop wound check. [facility] Medical History Osteoporosis Sigmoid volvulus Surgical History History of colostomy reversal (07/09/24) H/O colonoscopy H/O exploratory laparotomy (03/15/24) Social History Household Members: None Housing: House Are you a primary hospice spiritual care coordinator to a significant other at home: No Do you presently have visiting nurse or other home services: No Patient Tobacco Use Status: Never used Tobacco e-Cigarette/Vaping Use: Never Used service: No Physical Exam Vital Signs: Last Vital Signs Temp 97.9 F 07/11/24 07:39 Pulse 60 07/11/24 07:39 Resp 18 07/11/24 07:39 BP 105/55 L 07/11/24 07:39 Pulse Ox 99 07/11/24 07:39 O2 Del Method Room Air 07/11/24 07:39 O2 Flow Rate 2 07/09/24 10:35 BMI result Body Mass Index 15.4 Const General: comfortable, no acute distress and alert Orientation/consciousness: patient oriented x3 Resp Effort & Inspection: normal respiratory effort GI Inspection: No distended and Yes incision (clean, dry and intact without redness or discharge) Palpation (GI): Soft to palpation and Tenderness to palpation present (GI) (mild incisional) Percussion: Yes normal to percussion Abdomen image: 2 1. 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 She tolerated the procedure very well and is recovering nicely. She should continue to avoid lifting greater than 10 lb for approximately 1 month following her surgery after which she may return to normal activity. She should return as needed for any new concerns. Coding Level of Care Code Global (67733) Diagnoses Sigmoid volvulus K56.2
[2024-07-22 09:10] VITALS: BP 116/57; PULSE 80; BMI 35.4
== END 2024-07-22 09:14 | disposition home or self-care (01) ==
PROVIDERS: PCP Family Medicine; Visit Provider Surgery
DX: K56.2 Volvulus (principal)
CPT/HCPCS: 99024

== ENCOUNTER → 2024-07-22 08:54 | Outpatient (BNVA) | payer OTHER, SELFPAY | PROVIDERS: PCP Family Medicine; Visit Provider Surgery ==